=== PATIENT | male | born 1975 | race Two or more races ===

== ENCOUNTER → 2017-04-14 | Outpatient (CLI) | payer SELFPAY ==
[2017-04-14] MEDS: IOHEXOL 300 MG/ML 100ML VIAL. IV ×2 (11:13)
[2017-04-14] MEDS: IOHEXOL 240 MG/ML 50ML VIAL. PO ×2 (11:14)
== END | disposition home or self-care (01) ==
LOC: CT 09:05
DX: K57.30 Diverticulosis of large intestine without perforation or abscess without bleeding (principal)
CPT/HCPCS: 74177; Q9966; Q9967